=== PATIENT | female | born 1950 | race African-American/Black ===

== ENCOUNTER 2018-08-11 16:05 | Inpatient (IN) | payer MEDICARE, OTHER ==
[~2018-08-11] VITALS: Ht 172.7 cm; Wt 81.4 kg
[2018-08-11] MEDS ORDERED: RISP1TAB7 PO (16:35)
[2018-08-11] MEDS ORDERED: BENZ0.5T43 PO (16:35)
[2018-08-11] MEDS ORDERED: CLON0.1T PO (16:35)
--- NOTE | 2018-08-11 16:56 | NUR ---
PT IS IN ROOM #1B. DR FRANCOIS EVALUATED THE PT.
--- NOTE | 2018-08-11 17:06 | NUR ---
PT IS IN ROOM #1B UNDER DIRECT OBSERVATION OF SOFT IRON INSPECTOR LADAN
[2018-08-11 17:09] LABS: BASOPHILS % (AUTO) 0.8 % (0.0-2.0); EOSINOPHILS # (AUTO) 0.4 K/uL (0.0-0.7); EOSINOPHILS % (AUTO) 6.8 % (0.0-7.0); HEMATOCRIT 37.9 % (31.2-41.9); HEMOGLOBIN 12.4 g/dL (10.9-14.3); LYMPHOCYTES # (AUTO) 1.5 K/uL (20.0-40.0); LYMPHOCYTES % (AUTO) 28.9 % (20.5-51.5); MEAN CORPUSCULAR HEMOGLOBIN 27.2 uug (24.7-32.8); MEAN CORPUSCULAR HGB CONC 33 g/dL (32.3-35.6); MEAN CORPUSCULAR VOLUME 83.1 fL (75.5-95.3); MONOCYTES # (AUTO) 0.5 K/uL (2.0-10.0); MONOCYTES % (AUTO) 8.8 % (0.0-11.0); NEUTROPHILS # (AUTO) 2.9 K/uL (1.8-8.9); NEUTROPHILS % (AUTO) 54.7 % (38.5-71.5); PLATELET COUNT (AUTO) 203 K/uL (179-408); RED BLOOD CELL COUNT(AUTO) 4.56 MIL/uL (3.63-4.92); WHITE BLOOD COUNT (AUTO) 5.3 K/uL (3.8-11.8)
[2018-08-11 17:18] LABS: CARBON DIOXIDE 33 mmol/L (21-32); CHLORIDE 103 mmol/L (98-107); CREATININE 1.2 mg/dL (0.6-1.3); GLUCOSE 98 mg/dL (74-106); POTASSIUM 3.2 mmol/L (3.5-5.1); UREA NITROGEN, BLOOD 26 mg/dL (7-18)
[2018-08-11 17:29] LABS: ALANINE AMINOTRANSFERASE 18 U/L (14-59); ALKALINE PHOSPHATASE 83 U/L (50-136); ASPARTATE AMINOTRANSFERASE 15 U/L (15-37); BILIRUBIN,DIRECT 0.1 mg/dL (0.0-0.2); BILIRUBIN,TOTAL 0.4 mg/dL (0.2-1.0); TOTAL PROTEIN, SERUM 7.3 g/dL (6.4-8.2)
[2018-08-11 17:31] LABS: ETHANOL < 3 MG/DL (0-0)
[2018-08-11] MEDS ORDERED: ASPIRIN 325 MG TABLET PO ONE (18:00)
[2018-08-11] MEDS ORDERED: LORA-258 PO (18:00)
[2018-08-11] MEDS ORDERED: POTASSIUM BICARBONATE/CIT AC 25 MEQ TABLET.EFF PO ONE (18:00)
[2018-08-11] MEDS ORDERED: IBUP-1955 PO (18:01)
[2018-08-11] MEDS ORDERED: POTASSIUM BICARBONATE/CIT AC 25 MEQ TABLET.EFF ONE (18:04)
[2018-08-11] MEDS ORDERED: ASPIRIN 81 MG TAB.CHEW ONE (18:04)
[2018-08-11 18:22] LABS: THYROID STIMULATING HORMONE 1.317 mIU/mL (0.358-3.740)
--- NOTE | 2018-08-11 18:57 | NUR ---
REPORT GIVEN TO GEOSCIENCE TECHNICIAN RN.
--- NOTE | 2018-08-11 19:32 | NUR ---
Pt awake, alert, oriented x3. no sob noted. No s/sx of distress noted. Resp even and unlabored. Gen shaking noted. pt stated that she usually takes Lorazepam for her anxiety. Had Lorazepam earlier today and felt better. C/O BLE pain d/t walking yesterday. Will cont to monitor. Sitter at bedside. Call light within reach.
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
--- NOTE | 2018-08-11 19:41 | NUR ---
Report given to LUZMARIA Kinney
[2018-08-11] MEDS ORDERED: ONDANSETRON 4 MG/2 ML VIAL IV PRN (19:45)
[2018-08-11] MEDS ORDERED: MAGNESIUM HYDROXIDE 30 ML LIQUID UDC PO PRN (19:45)
[2018-08-11] MEDS ORDERED: ACETAMINOPHEN 325 MG TABLET PO PRN (19:45)
[2018-08-11] MEDS ORDERED: MORPHINE SULFATE 2 MG/1 ML DISP.SYRIN IV PRN (19:45)
[2018-08-11] MEDS ORDERED: ENALAPRILAT DIHYDRATE 1.25 MG/1 ML VIAL IV PRN (19:45)
[2018-08-11 20:00] VITALS: BP 145/85
--- NOTE | 2018-08-11 20:29 | NUR ---
Pt. admitted to tele , under care of Dr Gandara Belongs List completed
--- NOTE | 2018-08-11 20:30 | NUR ---
[facility] UNDER THE CARE OF DR. SANCHEZ DX:NONSTEMI NV. PT SHOWS NO SIGNS OF DISTRESS. IV INTACT AND PATENT. SAFETY AND COMFORT PROVIDED. BELONGING LIST DONE. ADMISSION PROCESS AND CARE PLAN DONE. [facility] ASSESSMENT D[facility] WILL CONTINUE TO MONITOR.
[2018-08-11] MEDS ORDERED: risperiDONE 1 MG TABLET PO SCH (21:00)
[2018-08-11] MEDS ORDERED: DOCUSATE SODIUM 250 MG CAPSULE PO SCH (21:00)
[2018-08-11] MEDS: DOCUSATE SODIUM 100 MG CAPSULE PO SCH (21:11)
[2018-08-11] MEDS: METOPROLOL TARTRATE 25 MG TABLET PO SCH (21:12)
[2018-08-11] MEDS: CLONIDINE HCL 0.1 MG TABLET PO SCH (22:19)
[2018-08-12] VITALS: BP 131/62
[2018-08-12] MEDS: TEMAZEPAM 15 MG CAPSULE PO PRN ×2 (00:23→22:11)
[2018-08-12] MEDS: POTASSIUM CHLORIDE 20 MEQ in IV 1/2NS 1000 ML 1,000 ML IV PRN ×2 (00:40→16:34)
[2018-08-12] MEDS: LORAZEPAM 0.5 MG TABLET PO PRN (01:58)
[2018-08-12 04:00] VITALS: BP 132/75
[2018-08-12] MEDS: CLONIDINE HCL 0.1 MG TABLET PO SCH ×3 (05:49→22:11)
[2018-08-12 06:11] LABS: BASOPHILS % (AUTO) 0.7 % (0.0-2.0); EOSINOPHILS # (AUTO) 0.4 K/uL (0.0-0.7); EOSINOPHILS % (AUTO) 7.2 % (0.0-7.0); HEMATOCRIT 36.4 % (31.2-41.9); LYMPHOCYTES # (AUTO) 1.7 K/uL (20.0-40.0); LYMPHOCYTES % (AUTO) 31.7 % (20.5-51.5); MEAN CORPUSCULAR HEMOGLOBIN 27.3 uug (24.7-32.8); MEAN CORPUSCULAR HGB CONC 33 g/dL (32.3-35.6); MEAN CORPUSCULAR VOLUME 83.1 fL (75.5-95.3); MONOCYTES # (AUTO) 0.4 K/uL (2.0-10.0); MONOCYTES % (AUTO) 7.1 % (0.0-11.0); NEUTROPHILS # (AUTO) 2.9 K/uL (1.8-8.9); NEUTROPHILS % (AUTO) 53.3 % (38.5-71.5); PLATELET COUNT (AUTO) 168 K/uL (179-408); RED BLOOD CELL COUNT(AUTO) 4.38 MIL/uL (3.63-4.92); WHITE BLOOD COUNT (AUTO) 5.4 K/uL (3.8-11.8)
[2018-08-12] MEDS: PANTOPRAZOLE SODIUM 40 MG TABLET.DR PO SCH (06:30)
[2018-08-12 06:42] LABS: THYROID STIMULATING HORMONE 2.169 mIU/mL (0.358-3.740)
[2018-08-12 06:44] LABS: BILIRUBIN,TOTAL 0.4 mg/dL (0.2-1.0); CREATININE 1.1 mg/dL (0.6-1.3); MAGNESIUM 2.1 mg/dL (1.8-2.4); POTASSIUM 3.5 mmol/L (3.5-5.1); TOTAL PROTEIN, SERUM 6.8 g/dL (6.4-8.2)
--- NOTE | 2018-08-12 06:49 | NUR ---
PT SLEPT INTERMITTENTLY. PT SHOWS NO SIGNS OF DISTRESS. IV INTACT AND PATENT.PRESCRIBED MEDICATION GIVEN AND PT TOLERATED IT WELL. SAFETY AND COMFORT PROVIDED. SITTER AT BEDSIDE FOR SAFETY, WILL ENDORSE ACCORDINGLY TO DAYSHIFT NURSE FOR CONTINUITY OF CARE.
[2018-08-12 08:00] VITALS: BP 118/67
[2018-08-12] MEDS: ASPIRIN EC 325 MG TABLET.DR PO SCH (08:34)
[2018-08-12] MEDS: METOPROLOL TARTRATE 25 MG TABLET PO SCH ×2 (08:34→20:51)
[2018-08-12] MEDS: BENZTROPINE MESYLATE 0.5 MG TABLET PO SCH (08:34)
[2018-08-12] MEDS: ENOXAPARIN SODIUM 40 MG/0.4 ML DISP.SYRIN SQ SCH (08:38)
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
[2018-08-12 12:00] VITALS: BP 137/67
[2018-08-12] MEDS: HYDROCODONE/APAP 5-325MG TABLET PO PRN ×2 (13:21→20:54)
--- NOTE | 2018-08-12 13:22 | NUR ---
PATIENT STATED THAT SHE NORMALLY TAKES NORCO FOR HER GENERALISED PAIN IN HER BACK SHOULDERS AND LOWER EXT BUT SHE HAS NO ORDER SO I CALLED DR SANCHEZ LEFT HIM A MESSAGE WITH ORDERS AND GIVEN ORDERED PATIENT MADE COMFORTABLE.
[2018-08-12] MEDS ORDERED: POTASSIUM CHLORIDE 20 MEQ TAB.PRT.SR PO ONE (17:00)
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
--- NOTE | 2018-08-12 19:25 | NUR ---
RECEIVED PT AWAKE, ALERT, ORIENTEDX2. PT SHOWS NO SIGNS OF DISTRESS. SITTER AT BEDSIDE FOR SAFETY. SAFETY AND COMFORT PROVIDED. WILL CONTINUE TO MONITOR.
[2018-08-12 20:00] VITALS: BP 131/67
[2018-08-12] MEDS: DOCUSATE SODIUM 100 MG CAPSULE PO SCH (20:44)
[2018-08-12] MEDS: risperiDONE 1 MG TABLET PO SCH (20:44)
[2018-08-12] MEDS: TRAZODONE 50 MG TABLET PO SCH (20:44)
[2018-08-12] MEDS ORDERED: risperiDONE 0.5 MG TABLET PO SCH (21:00)
[2018-08-12] MEDS ORDERED: ATORVASTATIN 20 MG TABLET PO SCH (21:00)
[2018-08-13] VITALS (7 sets, daily range): BP systolic 106–152; BP diastolic 50–78
[2018-08-13] MEDS: PANTOPRAZOLE SODIUM 40 MG TABLET.DR PO SCH (06:05)
[2018-08-13] MEDS: CLONIDINE HCL 0.1 MG TABLET PO SCH ×3 (06:07→22:11)
--- NOTE | 2018-08-13 06:13 | NUR ---
PT SLEPT INTERMITTENTLY. PT SHOWS NO SIGNS OF DISTRESS. PT CALM WHEN APPROACHED.PT HAVING THOUGHTS OF DELUSION. PT DISORGANIZED .PT WAS PUT TO 14 DAY HOLD BASED ON THE ASSESSMENT OF DR. HADLEY. I CONCUR ON THE HOLD GIVEN TO THE PT. SITTER AT BEDSIDE FOR SAFETY.PRESCRIBED MEDICATION GIVEN AND PT TOLERATED IT WELL. WILL ENDORSE TO DAYSHIFT NURSE FOR CONTINUITY OF CARE.
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
[2018-08-13] MEDS: risperiDONE 1 MG TABLET PO SCH ×2 (08:50→20:19)
[2018-08-13] MEDS: BENZTROPINE MESYLATE 0.5 MG TABLET PO SCH (08:50)
[2018-08-13] MEDS: ASPIRIN EC 325 MG TABLET.DR PO SCH (08:50)
[2018-08-13] MEDS: METOPROLOL TARTRATE 25 MG TABLET PO SCH ×2 (08:51→20:20)
[2018-08-13] MEDS: ENOXAPARIN SODIUM 40 MG/0.4 ML DISP.SYRIN SQ SCH (08:53)
[2018-08-13] MEDS: POTASSIUM CHLORIDE 20 MEQ in IV 1/2NS 1000 ML 1,000 ML IV PRN (10:32)
[2018-08-13] MEDS: HYDROCODONE/APAP 5-325MG TABLET PO PRN (11:25)
--- NOTE | 2018-08-13 11:25 | NUR ---
PATIENT COMPLAINED OF GENERALISED PAIN MEDICATED WITH NORCO ORDERED AND WILL REASSESS PATIENT MADE COMFORTABLE.
[2018-08-13 13:40] LABS: BASOPHILS % (AUTO) 0.8 % (0.0-2.0); EOSINOPHILS # (AUTO) 0.4 K/uL (0.0-0.7); HEMATOCRIT 33.7 % (31.2-41.9); HEMOGLOBIN 10.8 g/dL (10.9-14.3); LYMPHOCYTES # (AUTO) 1.4 K/uL (20.0-40.0); LYMPHOCYTES % (AUTO) 25.6 % (20.5-51.5); MEAN CORPUSCULAR HEMOGLOBIN 26.9 uug (24.7-32.8); MEAN CORPUSCULAR HGB CONC 32 g/dL (32.3-35.6); MEAN CORPUSCULAR VOLUME 83.8 fL (75.5-95.3); MONOCYTES # (AUTO) 0.3 K/uL (2.0-10.0); MONOCYTES % (AUTO) 6.1 % (0.0-11.0); NEUTROPHILS # (AUTO) 3.2 K/uL (1.8-8.9); NEUTROPHILS % (AUTO) 59.5 % (38.5-71.5); PLATELET COUNT (AUTO) 156 K/uL (179-408); POTASSIUM 4.3 mmol/L (3.5-5.1); RED BLOOD CELL COUNT(AUTO) 4.02 MIL/uL (3.63-4.92); WHITE BLOOD COUNT (AUTO) 5.4 K/uL (3.8-11.8)
--- NOTE | 2018-08-13 15:38 | NUR ---
PATIENT SEEN AND EXAMINED BY DR ROMAN WITH ORDER FOR NUCLEAR LEX[place] TEST TOMORROW CONSCENT OBTAINED FROM THE PATIENT ALSO PARAMETERS FOR HOLDING CATAPRES VERIFIED AND DOCUMENTED.
--- NOTE | 2018-08-13 16:00 | NUR ---
PATIENT EDUCATED TO REFRAIN FROM ANY CAFFEINE CONTAINING LIQUIDS INCLUDING COFFEE UNTIL AFTER THE PROCEDURE HAS BEEN COMPLETED AND SHE EXPRESSED UNDERSTANDING.
--- NOTE | 2018-08-13 20:00 | NUR ---
Received patient laying in bed. In no acute distress noted. Denies pain or SOB. A/O x 3. TELE SR at 77. On room air. IV on the left hand, patent and intact. Patient is able to ambulate with assistance. Skin is intact. Denies any SI. No behavioral issues noted at the moment. Safety initiated. Call light within reach. Bed in low and locked position. Will continue to monitor.
[2018-08-13] MEDS: TRAZODONE 50 MG TABLET PO SCH (20:19)
[2018-08-13] MEDS: DOCUSATE SODIUM 100 MG CAPSULE PO SCH (20:19)
[2018-08-13] MEDS: ATORVASTATIN 10 MG TABLET PO SCH (20:19)
[2018-08-13] MEDS ORDERED: ATORVASTATIN 20 MG TABLET PO SCH (21:00)
--- NOTE | 2018-08-13 21:10 | NUR ---
Adult protective worker Fang is seeing patient at bedside at the moment. 1:1 sitter at bedside. Will closely monitor.
[2018-08-13] MEDS: LORAZEPAM 0.5 MG TABLET PO PRN (22:11)
[2018-08-14] VITALS: BP 151/72
[2018-08-14] MEDS: HYDROCODONE/APAP 5-325MG TABLET PO PRN ×3 (00:47→19:46)
--- NOTE | 2018-08-14 00:48 | NUR ---
Patient c/o left knee pain 07/01. [place] given. Will continue to monitor. Also, patient made a large BM. Patient states that she has not made a BM since last Sunday.
[2018-08-14 04:00] VITALS: BP 135/71
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
[2018-08-14] MEDS: PANTOPRAZOLE SODIUM 40 MG TABLET.DR PO SCH (06:07)
[2018-08-14] MEDS: POTASSIUM CHLORIDE 20 MEQ in IV 1/2NS 1000 ML 1,000 ML IV PRN ×2 (06:07→21:29)
[2018-08-14] MEDS: CLONIDINE HCL 0.1 MG TABLET PO SCH ×3 (06:09→21:32)
[2018-08-14 06:24] LABS: BASOPHILS % (AUTO) 0.9 % (0.0-2.0); EOSINOPHILS # (AUTO) 0.4 K/uL (0.0-0.7); EOSINOPHILS % (AUTO) 9.4 % (0.0-7.0); HEMATOCRIT 31.7 % (31.2-41.9); HEMOGLOBIN 10.4 g/dL (10.9-14.3); LYMPHOCYTES # (AUTO) 1.4 K/uL (20.0-40.0); LYMPHOCYTES % (AUTO) 28.6 % (20.5-51.5); MEAN CORPUSCULAR HEMOGLOBIN 27.5 uug (24.7-32.8); MEAN CORPUSCULAR HGB CONC 33 g/dL (32.3-35.6); MEAN CORPUSCULAR VOLUME 83.8 fL (75.5-95.3); MONOCYTES # (AUTO) 0.3 K/uL (2.0-10.0); MONOCYTES % (AUTO) 7.2 % (0.0-11.0); NEUTROPHILS # (AUTO) 2.5 K/uL (1.8-8.9); NEUTROPHILS % (AUTO) 53.9 % (38.5-71.5); PLATELET COUNT (AUTO) 134 K/uL (179-408); RED BLOOD CELL COUNT(AUTO) 3.79 MIL/uL (3.63-4.92); WHITE BLOOD COUNT (AUTO) 4.7 K/uL (3.8-11.8)
[2018-08-14 06:43] LABS: CREATININE 1.1 mg/dL (0.6-1.3); MAGNESIUM 1.9 mg/dL (1.8-2.4); PHOSPHOROUS 3.3 mg/dL (2.5-4.9); POTASSIUM 4.3 mmol/L (3.5-5.1)
[2018-08-14 08:34] VITALS: BP 137/61
[2018-08-14] MEDS: BENZTROPINE MESYLATE 0.5 MG TABLET PO SCH (08:59)
[2018-08-14] MEDS: ASPIRIN 81 MG TAB.CHEW PO SCH (08:59)
[2018-08-14] MEDS: risperiDONE 1 MG TABLET PO SCH ×2 (08:59→20:09)
[2018-08-14] MEDS ORDERED: ASPIRIN EC 325 MG TABLET.DR PO SCH (09:00)
[2018-08-14] MEDS: METOPROLOL TARTRATE 25 MG TABLET PO SCH ×2 (09:03→20:10)
[2018-08-14] MEDS: ENOXAPARIN SODIUM 40 MG/0.4 ML DISP.SYRIN SQ SCH (09:04)
[2018-08-14] MEDS ORDERED: REGADENOSON 0.4 MG/5 ML PREFILLED SYR IV ONE (11:00)
[2018-08-14 11:13] VITALS: BP 129/71
--- NOTE | 2018-08-14 12:51 | NUR ---
CINDY USED IN NUCLEAR MEDICINE.
[2018-08-14 15:10] VITALS: BP 149/83
--- NOTE | 2018-08-14 18:35 | NUR ---
PT IS OBSERVED IN BED RESTING WITH NO SIGNS OF RESPIRATORY DISTRESS. AOX3, PAIN MANAGED WITH NORCO AND TYLENOL. COMPLIANT WITH MEDICATIONS, ALLOWS CARE, HAS A 1:1 SITTER FOR SAFETY. CONTINUE TO MONITOR PT.
[2018-08-14 20:08] VITALS: BP 178/69
[2018-08-14] MEDS: TRAZODONE 50 MG TABLET PO SCH (20:09)
[2018-08-14] MEDS: DOCUSATE SODIUM 100 MG CAPSULE PO SCH (20:09)
[2018-08-14] MEDS: ATORVASTATIN 10 MG TABLET PO SCH (20:10)
[2018-08-14] MEDS: TEMAZEPAM 15 MG CAPSULE PO PRN (21:33)
[2018-08-15] VITALS: BP 149/75
[2018-08-15 06:00] VITALS: BP 147/76
--- NOTE | 2018-08-15 06:00 | NUR ---
Patient rested well in between care; no acute distress; seen by Dr Ball; no acute distress; 1:1 sitter at bedside; needs attended; continue to monitor; continue plan of care.
[2018-08-15] MEDS: PANTOPRAZOLE SODIUM 40 MG TABLET.DR PO SCH (06:28)
[2018-08-15] MEDS: CLONIDINE HCL 0.1 MG TABLET PO SCH ×2 (06:29→14:21)
--- NOTE | 2018-08-15 07:30 | NUR ---
PATIENT AWAKE, ALERT, ORIENTED . SITTER AT BED SITE. LEFT HAND IV SALINE LOCKED. PATIENT REFUSED IV FLUIDS. PATIENT STATED SHE IS HAVING PAIN TO LOWER BACK. PRN PAIN MEDICATIONS WILL BE GIVEN ORDERED. PATIENT DENIES ADDITIONAL DISCOMFORT.
[2018-08-15 07:50] VITALS: BP 152/74
[2018-08-15] MEDS: BENZTROPINE MESYLATE 0.5 MG TABLET PO SCH (08:10)
[2018-08-15] MEDS: METOPROLOL TARTRATE 25 MG TABLET PO SCH (08:10)
[2018-08-15] MEDS: HYDROCODONE/APAP 5-325MG TABLET PO PRN (08:12)
[2018-08-15] MEDS: ENOXAPARIN SODIUM 40 MG/0.4 ML DISP.SYRIN SQ SCH (08:13)
[2018-08-15] MEDS ORDERED: risperiDONE 1 MG TABLET PO SCH (09:00)
[2018-08-15] MEDS: ASPIRIN 81 MG TAB.CHEW PO SCH (10:18)
[2018-08-15] MEDS ORDERED: ATOR10TA PO (11:27)
[2018-08-15] MEDS ORDERED: METO25TA6 PO (11:27)
[2018-08-15] MEDS ORDERED: ASPI81TA31 PO (11:27)
[2018-08-15 11:51] VITALS: BP 115/50
--- NOTE | 2018-08-15 14:13 | NUR ---
PATIENT DISCHARGED TO [facility] ROOM 139. REPORT GIVEN TO MIGUEL. PATIENT STABLE. DISCHARGED INSTRUCTIONS GIVEN AND REVIEWED WITH PATIENT. BELONGINGS LIST SIGNED AND BELONGINGS GOING WITH PATIENT.
[2018-08-15 14:21] VITALS: BP 142/70
[2018-08-15] MEDS ORDERED: TRAZODONE 100 MG TABLET PO SCH (21:00)
[2018-08-15] MEDS ORDERED: TRAZODONE 100 MG TABLET GT SCH (21:00)
== END 2018-08-15 14:45 | DRG 280 ==
LOC: ER 16:08 → TELE 18:18 → MED 08-14 18:28
PROVIDERS: ADMIT Internal Medicine; ATTEND Internal Medicine
DX: I21.A1 Myocardial infarction type 2 (principal); N17.0 Acute kidney failure with tubular necrosis; E44.1 Mild protein-calorie malnutrition; F23 Brief psychotic disorder; E87.6 Hypokalemia; E78.5 Hyperlipidemia, unspecified; Z82.49 Family history of ischemic heart disease and other diseases of the circulatory system; I11.9 Hypertensive heart disease without heart failure; G89.29 Other chronic pain; M54.9 Dorsalgia, unspecified; Z68.27 Body mass index [BMI] 27.0-27.9, adult; Z79.899 Other long term (current) drug therapy; F25.9 Schizoaffective disorder, unspecified; F41.9 Anxiety disorder, unspecified; F11.10 Opioid abuse, uncomplicated; F13.10 Sedative, hypnotic or anxiolytic abuse, uncomplicated; Z91.5 Personal history of self-harm; Z90.710 Acquired absence of both cervix and uterus; Z80.3 Family history of malignant neoplasm of breast
CPT/HCPCS: 36415; 70030-TC; 71045; 73560; 78452; 83550; 83735; 84100; 84443; 85025; 85730; 93005; 93307; A4663; A9502; G0378; G0480; J1650; J2785; J3480; J3490

== ENCOUNTER 2018-08-15 15:25 | Inpatient (IN) | payer MEDICARE, OTHER ==
[~2018-08-15] VITALS: Ht 172.7 cm; Wt 101.2 kg
[~2018-08-15 15:25] MED LIST: ASPI81TA31 PO; ATOR10TA PO; BENZ0.5T43 PO; CLON0.1T PO; IBUP-1955 PO; LORA-258 PO; METO25TA6 PO; RISP1TAB7 PO
[2018-08-15 16:15] VITALS: BP 148/77
[2018-08-15] MEDS ORDERED: MAG HYDROX/AL HYDROX/SIMETH 30 ML LIQUID UDC PO PRN (16:30)
[2018-08-15] MEDS ORDERED: MAGNESIUM HYDROXIDE 30 ML LIQUID UDC PO PRN (16:30)
[2018-08-15] MEDS ORDERED: LORAZEPAM 1 MG TABLET PO PRN (17:00)
[2018-08-15] MEDS ORDERED: IBUPROFEN 600 MG TABLET PO PRN (18:15)
[2018-08-15 20:00] VITALS: BP 176/82
[2018-08-15] MEDS: ATORVASTATIN 10 MG TABLET PO SCH (20:22)
[2018-08-15] MEDS: METOPROLOL TARTRATE 25 MG TABLET PO SCH (20:23)
[2018-08-15] MEDS: ACETAMINOPHEN 325 MG TABLET PO PRN (20:26)
[2018-08-15] MEDS ORDERED: risperiDONE 1 MG TABLET PO SCH (21:30)
[2018-08-15] MEDS ORDERED: BENZTROPINE MESYLATE 0.5 MG TABLET PO ONE (21:30)
[2018-08-15] MEDS ORDERED: TRAZODONE 100 MG TABLET PO ONE (21:45)
[2018-08-15] MEDS ORDERED: TRAZODONE 100 MG TABLET PO SCH (21:45)
[2018-08-15] MEDS ORDERED: risperiDONE 1 MG TABLET PO ONE (21:45)
[2018-08-16] MEDS: IBUPROFEN 400 MG TABLET PO PRN ×2 (02:18→13:59)
[2018-08-16] MEDS: ASPIRIN 81 MG TAB.CHEW PO SCH (08:39)
[2018-08-16] MEDS: METOPROLOL TARTRATE 25 MG TABLET PO SCH ×2 (08:39→20:29)
[2018-08-16] MEDS: BENZTROPINE MESYLATE 0.5 MG TABLET PO SCH ×2 (08:39→20:29)
[2018-08-16 08:57] LABS: BASOPHILS % (AUTO) 0.7 % (0.0-2.0); EOSINOPHILS # (AUTO) 0.4 K/uL (0.0-0.7); EOSINOPHILS % (AUTO) 6.7 % (0.0-7.0); HEMATOCRIT 34.6 % (31.2-41.9); HEMOGLOBIN 11.5 g/dL (10.9-14.3); LYMPHOCYTES # (AUTO) 1.5 K/uL (20.0-40.0); LYMPHOCYTES % (AUTO) 23.1 % (20.5-51.5); MEAN CORPUSCULAR HEMOGLOBIN 27.4 uug (24.7-32.8); MEAN CORPUSCULAR HGB CONC 33 g/dL (32.3-35.6); MEAN CORPUSCULAR VOLUME 82.8 fL (75.5-95.3); MONOCYTES # (AUTO) 0.4 K/uL (2.0-10.0); MONOCYTES % (AUTO) 6.5 % (0.0-11.0); PLATELET COUNT (AUTO) 154 K/uL (179-408); RED BLOOD CELL COUNT(AUTO) 4.17 MIL/uL (3.63-4.92); WHITE BLOOD COUNT (AUTO) 6.3 K/uL (3.8-11.8)
[2018-08-16] MEDS ORDERED: risperiDONE 1 MG TABLET PO SCH (09:00)
[2018-08-16 09:24] LABS: CREATININE 1.2 mg/dL (0.6-1.3); POTASSIUM 4.2 mmol/L (3.5-5.1)
[2018-08-16 10:14] VITALS: BP 172/88
[2018-08-16] MEDS: LORAZEPAM 1 MG TABLET PO PRN (14:38)
[2018-08-16] MEDS: CLONIDINE HCL 0.1 MG TABLET PO SCH (15:12)
[2018-08-16 15:51] VITALS: BP_SYST 115; BP_SYST 178; BP_DIAS 57; BP_DIAS 81
[2018-08-16 18:43] VITALS: BP 156/90
[2018-08-16] MEDS: ATORVASTATIN 10 MG TABLET PO SCH (20:29)
[2018-08-16] MEDS: TRAZODONE 100 MG TABLET PO SCH (20:30)
[2018-08-16] MEDS: risperiDONE 0.5 MG TABLET PO SCH (20:30)
[2018-08-16 20:59] VITALS: BP 162/96
[2018-08-16] MEDS: TEMAZEPAM 7.5 MG CAPSULE PO PRN (22:18)
[2018-08-17] MEDS: ACETAMINOPHEN 325 MG TABLET PO PRN ×3 (02:42→17:17)
[2018-08-17] MEDS: LORAZEPAM 1 MG TABLET PO PRN (05:44)
[2018-08-17 05:56] VITALS: BP 159/85
[2018-08-17 07:30] VITALS: BP 188/95
[2018-08-17] MEDS: BENZTROPINE MESYLATE 0.5 MG TABLET PO SCH ×2 (07:31→20:00)
[2018-08-17] MEDS: ASPIRIN 81 MG TAB.CHEW PO SCH (07:31)
[2018-08-17] MEDS: risperiDONE 0.5 MG TABLET PO SCH ×2 (07:31→20:01)
[2018-08-17] MEDS: METOPROLOL TARTRATE 25 MG TABLET PO SCH ×2 (07:32→20:02)
[2018-08-17] MEDS: IBUPROFEN 400 MG TABLET PO PRN ×2 (12:17→20:00)
[2018-08-17 15:06] VITALS: BP 143/78
[2018-08-17] MEDS: CLONIDINE HCL 0.1 MG TABLET PO SCH (17:05)
[2018-08-17] MEDS: ATORVASTATIN 10 MG TABLET PO SCH (20:00)
[2018-08-17] MEDS: TRAZODONE 100 MG TABLET PO SCH (20:00)
[2018-08-17 20:29] VITALS: BP 175/91
[2018-08-17] MEDS: hydrALAZINE HCL 10 MG TABLET PO PRN (21:44)
[2018-08-17 23:59] VITALS: BP 137/75
[2018-08-18] MEDS: TEMAZEPAM 7.5 MG CAPSULE PO PRN (01:29)
[2018-08-18] MEDS: IBUPROFEN 400 MG TABLET PO PRN ×2 (07:06→23:17)
[2018-08-18 07:30] VITALS: BP 150/87
[2018-08-18] MEDS: BENZTROPINE MESYLATE 0.5 MG TABLET PO SCH ×2 (08:51→20:23)
[2018-08-18] MEDS: METOPROLOL TARTRATE 25 MG TABLET PO SCH ×2 (08:51→20:22)
[2018-08-18] MEDS: ASPIRIN 81 MG TAB.CHEW PO SCH (08:51)
[2018-08-18] MEDS: risperiDONE 0.5 MG TABLET PO SCH (08:52)
[2018-08-18 15:31] VITALS: BP 156/75
[2018-08-18] MEDS: ACETAMINOPHEN 325 MG TABLET PO PRN (15:45)
[2018-08-18] MEDS: CLONIDINE HCL 0.1 MG TABLET PO SCH (17:07)
[2018-08-18] MEDS: ATORVASTATIN 10 MG TABLET PO SCH (20:21)
[2018-08-18] MEDS: TRAZODONE 100 MG TABLET PO SCH (20:23)
[2018-08-18] MEDS: risperiDONE 2 MG TABLET PO SCH (20:23)
[2018-08-18] MEDS: hydrALAZINE HCL 10 MG TABLET PO PRN (20:23)
[2018-08-18 20:25] VITALS: BP 168/84
[2018-08-18] MEDS ORDERED: risperiDONE 0.5 MG TABLET PO SCH (21:00)
[2018-08-18 21:58] VITALS: BP 139/65
[2018-08-19] MEDS: TEMAZEPAM 7.5 MG CAPSULE PO PRN (00:32)
[2018-08-19 07:30] VITALS: BP 190/88
[2018-08-19] MEDS: BENZTROPINE MESYLATE 0.5 MG TABLET PO SCH ×2 (08:23→20:37)
[2018-08-19] MEDS: ASPIRIN 81 MG TAB.CHEW PO SCH (08:23)
[2018-08-19] MEDS: risperiDONE 2 MG TABLET PO SCH ×2 (08:23→20:36)
[2018-08-19] MEDS: ACETAMINOPHEN 325 MG TABLET PO PRN (08:23)
[2018-08-19] MEDS: hydrALAZINE HCL 10 MG TABLET PO PRN (08:24)
[2018-08-19] MEDS: METOPROLOL TARTRATE 25 MG TABLET PO SCH ×2 (08:24→20:37)
[2018-08-19] MEDS: LORAZEPAM 1 MG TABLET PO PRN (10:06)
[2018-08-19] MEDS: AMLODIPINE 10 MG TABLET PO SCH (10:21)
[2018-08-19 16:29] VITALS: BP 157/76
[2018-08-19] MEDS: CLONIDINE HCL 0.1 MG TABLET PO SCH (17:10)
[2018-08-19] MEDS: IBUPROFEN 400 MG TABLET PO PRN (17:10)
[2018-08-19 20:32] VITALS: BP 128/68
[2018-08-19] MEDS: ATORVASTATIN 10 MG TABLET PO SCH (20:36)
[2018-08-19] MEDS: TRAZODONE 100 MG TABLET PO SCH (20:37)
[2018-08-19] MEDS ORDERED: TRAZODONE 100 MG TABLET PO ONE (22:45)
[2018-08-20 07:30] VITALS: BP 140/81
[2018-08-20] MEDS: risperiDONE 2 MG TABLET PO SCH (08:13)
[2018-08-20] MEDS: BENZTROPINE MESYLATE 0.5 MG TABLET PO SCH ×2 (08:13→20:03)
[2018-08-20] MEDS: ASPIRIN 81 MG TAB.CHEW PO SCH (08:14)
[2018-08-20] MEDS: IBUPROFEN 400 MG TABLET PO PRN ×2 (08:14→14:29)
[2018-08-20] MEDS: AMLODIPINE 10 MG TABLET PO SCH (08:14)
[2018-08-20] MEDS: METOPROLOL TARTRATE 25 MG TABLET PO SCH ×2 (08:14→20:05)
[2018-08-20 16:54] VITALS: BP 150/73
[2018-08-20] MEDS: CLONIDINE HCL 0.1 MG TABLET PO SCH (17:00)
[2018-08-20] MEDS: risperiDONE 1 MG TABLET PO SCH (20:03)
[2018-08-20] MEDS: TRAZODONE 100 MG TABLET PO SCH (20:04)
[2018-08-20] MEDS: ATORVASTATIN 10 MG TABLET PO SCH (20:05)
[2018-08-20 20:06] VITALS: BP 159/79
[2018-08-20 22:00] VITALS: BP 132/78
[2018-08-20] MEDS: TEMAZEPAM 7.5 MG CAPSULE PO PRN (22:05)
[2018-08-21] MEDS: ACETAMINOPHEN 325 MG TABLET PO PRN (04:24)
[2018-08-21 05:59] VITALS: BP 140/70
[2018-08-21 07:30] VITALS: BP 111/79
[2018-08-21 07:56] LABS: EOSINOPHILS # (AUTO) 0.5 K/uL (0.0-0.7); EOSINOPHILS % (AUTO) 10.2 % (0.0-7.0); HEMATOCRIT 33.2 % (31.2-41.9); LYMPHOCYTES # (AUTO) 1.2 K/uL (20.0-40.0); LYMPHOCYTES % (AUTO) 24.2 % (20.5-51.5); MEAN CORPUSCULAR HGB CONC 33 g/dL (32.3-35.6); MEAN CORPUSCULAR VOLUME 81.1 fL (75.5-95.3); MONOCYTES # (AUTO) 0.4 K/uL (2.0-10.0); NEUTROPHILS # (AUTO) 2.7 K/uL (1.8-8.9); NEUTROPHILS % (AUTO) 56.6 % (38.5-71.5); PLATELET COUNT (AUTO) 165 K/uL (179-408); RED BLOOD CELL COUNT(AUTO) 4.09 MIL/uL (3.63-4.92); WHITE BLOOD COUNT (AUTO) 4.8 K/uL (3.8-11.8)
[2018-08-21 08:39] LABS: BILIRUBIN,TOTAL 0.4 mg/dL (0.2-1.0); CREATININE 1.1 mg/dL (0.6-1.3); MAGNESIUM 2.2 mg/dL (1.8-2.4); PHOSPHOROUS 3.7 mg/dL (2.5-4.9); POTASSIUM 4.2 mmol/L (3.5-5.1)
[2018-08-21] MEDS: risperiDONE 1 MG TABLET PO SCH ×2 (08:39→20:34)
[2018-08-21] MEDS: BENZTROPINE MESYLATE 0.5 MG TABLET PO SCH ×2 (08:39→20:34)
[2018-08-21] MEDS: AMLODIPINE 10 MG TABLET PO SCH (08:40)
[2018-08-21] MEDS: ASPIRIN 81 MG TAB.CHEW PO SCH (08:40)
[2018-08-21] MEDS: METOPROLOL TARTRATE 50 MG TABLET PO SCH ×2 (08:51→20:36)
[2018-08-21 09:11] LABS: THYROID STIMULATING HORMONE 1.331 mIU/mL (0.358-3.740)
[2018-08-21] MEDS: LORAZEPAM 1 MG TABLET PO PRN (09:11)
[2018-08-21] MEDS: IBUPROFEN 400 MG TABLET PO PRN ×2 (09:11→21:31)
[2018-08-21 19:43] VITALS: BP 149/74
[2018-08-21] MEDS: ATORVASTATIN 10 MG TABLET PO SCH (20:34)
[2018-08-21] MEDS: TRAZODONE 100 MG TABLET PO SCH (20:35)
[2018-08-21] MEDS: TEMAZEPAM 7.5 MG CAPSULE PO PRN (21:31)
[2018-08-22 08:00] VITALS: BP 127/76
[2018-08-22] MEDS: risperiDONE 1 MG TABLET PO SCH ×2 (08:16→21:18)
[2018-08-22] MEDS: BENZTROPINE MESYLATE 0.5 MG TABLET PO SCH ×2 (08:17→21:19)
[2018-08-22] MEDS: ASPIRIN 81 MG TAB.CHEW PO SCH (08:18)
[2018-08-22] MEDS: IBUPROFEN 400 MG TABLET PO PRN ×2 (08:18→18:17)
[2018-08-22] MEDS: METOPROLOL TARTRATE 50 MG TABLET PO SCH ×2 (08:18→21:00)
[2018-08-22] MEDS: AMLODIPINE 10 MG TABLET PO SCH (08:19)
[2018-08-22] MEDS: LORAZEPAM 1 MG TABLET PO PRN (10:20)
[2018-08-22 16:25] VITALS: BP 116/71
[2018-08-22] MEDS: hydrALAZINE HCL 25 MG TABLET PO PRN (19:48)
[2018-08-22 20:00] VITALS: BP 170/84
[2018-08-22 21:00] VITALS: BP 102/68
[2018-08-22] MEDS: TRAZODONE 100 MG TABLET PO SCH (21:19)
[2018-08-22] MEDS: ATORVASTATIN 10 MG TABLET PO SCH (21:19)
[2018-08-23] MEDS: IBUPROFEN 400 MG TABLET PO PRN ×3 (00:58→14:36)
[2018-08-23 07:30] VITALS: BP 130/76
[2018-08-23] MEDS: risperiDONE 1 MG TABLET PO SCH ×2 (08:24→20:25)
[2018-08-23] MEDS: ASPIRIN 81 MG TAB.CHEW PO SCH (08:25)
[2018-08-23] MEDS: BENZTROPINE MESYLATE 0.5 MG TABLET PO SCH ×2 (08:25→20:26)
[2018-08-23] MEDS: AMLODIPINE 10 MG TABLET PO SCH (08:25)
[2018-08-23] MEDS: METOPROLOL TARTRATE 50 MG TABLET PO SCH ×2 (08:26→20:26)
[2018-08-23] MEDS: LORAZEPAM 1 MG TABLET PO PRN (13:13)
[2018-08-23 16:00] VITALS: BP 132/64
[2018-08-23] MEDS: OXYMETAZOLINE NASAL 0.05% 15 ML SPRAY NS PRN ×2 (16:58→22:02)
[2018-08-23 20:00] VITALS: BP 156/79
[2018-08-23] MEDS: hydrALAZINE HCL 25 MG TABLET PO PRN (20:26)
[2018-08-23] MEDS: TRAZODONE 100 MG TABLET PO SCH (20:26)
[2018-08-23] MEDS: ATORVASTATIN 10 MG TABLET PO SCH (20:27)
[2018-08-23] MEDS: TEMAZEPAM 7.5 MG CAPSULE PO PRN (22:02)
[2018-08-24 07:30] VITALS: BP 138/74
[2018-08-24] MEDS ORDERED: IOHEXOL 300MG/ML 100 ML INFUS..BTL ONE (07:51)
[2018-08-24] MEDS ORDERED: BARIUM SULFATE 450 ML ORAL.SUSP ONE (07:51)
[2018-08-24] MEDS ORDERED: SWABABLE VALVE TRANSFER SET EA MC ONE (07:52)
[2018-08-24] MEDS ORDERED: IV NORMAL SALINE 0 ML IV ONE (07:52)
[2018-08-24] MEDS: LORAZEPAM 1 MG TABLET PO PRN (08:31)
[2018-08-24] MEDS: ASPIRIN 81 MG TAB.CHEW PO SCH (08:31)
[2018-08-24] MEDS: BENZTROPINE MESYLATE 0.5 MG TABLET PO SCH ×2 (08:31→20:39)
[2018-08-24] MEDS: risperiDONE 1 MG TABLET PO SCH ×2 (08:32→20:39)
[2018-08-24] MEDS: AMLODIPINE 10 MG TABLET PO SCH (08:32)
[2018-08-24] MEDS: METOPROLOL TARTRATE 50 MG TABLET PO SCH ×2 (08:34→21:43)
[2018-08-24] MEDS: IBUPROFEN 400 MG TABLET PO PRN (16:12)
[2018-08-24 16:38] VITALS: BP 154/77
[2018-08-24] MEDS: OXYMETAZOLINE NASAL 0.05% 15 ML SPRAY NS PRN (17:46)
[2018-08-24 19:41] VITALS: BP 158/74
[2018-08-24] MEDS: TRAZODONE 100 MG TABLET PO SCH (20:39)
[2018-08-24] MEDS: ATORVASTATIN 10 MG TABLET PO SCH (20:39)
[2018-08-24] MEDS: hydrALAZINE HCL 25 MG TABLET PO PRN (20:40)
[2018-08-24] MEDS: TEMAZEPAM 7.5 MG CAPSULE PO PRN (21:43)
[2018-08-25] MEDS: OXYMETAZOLINE NASAL 0.05% 15 ML SPRAY NS PRN ×2 (01:58→21:31)
[2018-08-25 07:30] VITALS: BP 107/62
[2018-08-25] MEDS: risperiDONE 1 MG TABLET PO SCH ×2 (09:01→20:24)
[2018-08-25] MEDS: BENZTROPINE MESYLATE 0.5 MG TABLET PO SCH ×2 (09:02→20:24)
[2018-08-25] MEDS: AMLODIPINE 10 MG TABLET PO SCH (09:02)
[2018-08-25] MEDS: METOPROLOL TARTRATE 50 MG TABLET PO SCH ×2 (09:03→21:29)
[2018-08-25] MEDS: ASPIRIN 81 MG TAB.CHEW PO SCH (09:03)
[2018-08-25] MEDS: IBUPROFEN 400 MG TABLET PO PRN ×2 (09:03→16:32)
[2018-08-25] MEDS: LORAZEPAM 1 MG TABLET PO PRN (11:22)
[2018-08-25 15:21] VITALS: BP 135/69
[2018-08-25 20:20] VITALS: BP 125/69
[2018-08-25] MEDS: TRAZODONE 100 MG TABLET PO SCH (20:24)
[2018-08-25] MEDS: ATORVASTATIN 10 MG TABLET PO SCH (20:24)
[2018-08-25] MEDS: TEMAZEPAM 7.5 MG CAPSULE PO PRN (21:30)
[2018-08-26 07:30] VITALS: BP 141/89
[2018-08-26] MEDS: BENZTROPINE MESYLATE 0.5 MG TABLET PO SCH (08:16)
[2018-08-26] MEDS: ASPIRIN 81 MG TAB.CHEW PO SCH (08:16)
[2018-08-26 08:17] VITALS: BP 141/89
[2018-08-26] MEDS: METOPROLOL TARTRATE 50 MG TABLET PO SCH (08:17)
[2018-08-26] MEDS: AMLODIPINE 10 MG TABLET PO SCH (08:17)
[2018-08-26] MEDS: risperiDONE 1 MG TABLET PO SCH (08:18)
[2018-08-26] MEDS: LORAZEPAM 1 MG TABLET PO PRN (08:19)
[2018-08-26] MEDS: IBUPROFEN 400 MG TABLET PO PRN (08:19)
== END 2018-08-26 14:15 | DRG 885 ==
LOC: GPS 15:25
PROVIDERS: ADMIT Psychiatry & Neurology Psychiatry; ATTEND Internal Medicine
PROC: 0HBRXZZ Excision of Toe Nail, External Approach (ICD-10-PCS; principal; 2018-08-20)
DX: F25.1 Schizoaffective disorder, depressive type (principal); E44.1 Mild protein-calorie malnutrition; K40.30 Unilateral inguinal hernia, with obstruction, without gangrene, not specified as recurrent; J90 Pleural effusion, not elsewhere classified; E78.5 Hyperlipidemia, unspecified; I11.9 Hypertensive heart disease without heart failure; E66.9 Obesity, unspecified; Z68.33 Body mass index [BMI] 33.0-33.9, adult; Z71.3 Dietary counseling and surveillance; G89.29 Other chronic pain; M54.9 Dorsalgia, unspecified; I25.10 Atherosclerotic heart disease of native coronary artery without angina pectoris; I25.2 Old myocardial infarction; M19.90 Unspecified osteoarthritis, unspecified site; Z82.49 Family history of ischemic heart disease and other diseases of the circulatory system; Z90.710 Acquired absence of both cervix and uterus; K57.30 Diverticulosis of large intestine without perforation or abscess without bleeding; F11.11 Opioid abuse, in remission; F13.11 Sedative, hypnotic or anxiolytic abuse, in remission; Z79.899 Other long term (current) drug therapy; R79.89 Other specified abnormal findings of blood chemistry; M17.0 Bilateral primary osteoarthritis of knee; N93.9 Abnormal uterine and vaginal bleeding, unspecified; B35.1 Tinea unguium; I73.9 Peripheral vascular disease, unspecified; L85.1 Acquired keratosis [keratoderma] palmaris et plantaris; R26.2 Difficulty in walking, not elsewhere classified; M62.81 Muscle weakness (generalized)
CPT/HCPCS: 36415; 83735; 84100; 84443; 85025; A4663; J7050; Q9951; Q9967